=== PATIENT | male | born 1965 | race Caucasian/White ===

== ENCOUNTER 2023-08-23 11:06 | Emergency (ER) | payer BC, SELFPAY ==
[2023-08-23] VITALS (13 sets, daily range): BP systolic 109–132; BP diastolic 76–86; PULSE 67–88; RESP 18; TEMP 36.6; O2SAT 96–98; BMI 29.4
--- NOTE | 2023-08-23 11:59 | ED.GENADULT ---
HPI - General Adult General Chief complaint: Syncope/Fainted Stated complaint: Light headed Time Seen by Provider: 08/23/23 11:26 History of Present Illness HPI narrative: this 58-year-old male comes in reporting symptoms of lightheadedness over the past couple weeks. He states that it seems to be more prominent when getting up from a sitting position. He has not had loss of consciousness. He does not report any nausea, vomiting, shortness of breath, diaphoresis, or chest pain. He states that he is not taking any medications. He is a smoker and has been doing so for a long time. She arrives here with normal vital signs. Related Data Home Medications Medication Instructions Recorded Confirmed No Known Home Medications 08/23/23 08/23/23 Allergies Allergy/AdvReac Type Severity Reaction Status Date / Time No Known Drug Allergies Allergy Verified 08/23/23 11:38 Review of Systems Status of ROS: Reports: 10 or more systems reviewed and unremarkable except as noted in History and below Narrative: Constitutional: No fevers, no weight gain or loss. Eyes: No discharge. No vision changes. HENT: No congestion, no sore throat, no ear pain. Cardiovascular: No chest pain, no palpitations. Respiratory: No shortness of breath, no wheezes, no cough. Gastrointestinal: No abdominal pain, no vomiting, no diarrhea. Genitourinary: No dysuria, no hematuria. Musculoskeletal: Normal range of motion. Skin: No rashes, no pruritis. Neurological: No weakness, sensory change, speech change. He reports lightheadedness symptoms as described above. Endo/Heme/Allergies: No bruising or bleeding. No polydipsia. Pysch: no suicidality, no anxiety, no insomnia. All other systems reviewed and are negative. Exam Narrative: Exam Narrative: Constitutional: Well-developed, well-nourished, no acute distress. HEENT: Normocephalic, atraumatic. Neck: Normal range of motion. Nontender. Supple. Heart: Regular. No murmurs. Normal rate. Intact distal pulses. Lungs: Clear to auscultation. No chest discomfort. No wheezes, rhonchi, or rales. Abdomen: Normal bowel sounds. Nontender. No rebound tenderness. Genitalia: Deferred. Back: No midline tenderness. Normal range of motion. Extremities: Normal range of motion. No injury. No pedal edema. Skin: Intact. No rash. Warm. No erythema or pallor. Neurologic: No altered sensation. No weakness. Alert and oriented. Psychiatric: No suicidality. No anxiety or depression. No insomnia. Nursing notes and vitals signs are reviewed. Const: Vital Signs, click to edit/add: Vital Signs - 24 hr 08/23/23 11:33 08/23/23 12:34 08/23/23 12:35 Temperature 97.9 F Pulse Rate 73 76 Pulse Rate [Right Pulse Oximeter] 88 Respiratory Rate 18 Blood Pressure 125/76 Blood Pressure [Ri ght Upper Arm] 132/86 Pulse Oximetry 97 97 96 Oxygen Delivery Me thod Room Air 08/23/23 12:45 08/23/23 13:00 08/23/23 13:01 Temperature Pulse Rate 77 72 72 Pulse Rate [Right Pulse Oximeter] Respiratory Rate Blood Pressure 122/82 Blood Pressure [Ri ght Upper Arm] Pulse Oximetry 96 97 97 Oxygen Delivery Me thod 08/23/23 13:15 Temperature Pulse Rate 73 Pulse Rate [Right Pulse Oximeter] Respiratory Rate Blood Pressure Blood Pressure [Ri ght Upper Arm] Pulse Oximetry 97 Oxygen Delivery Me thod Course Vital Signs Vital signs: Initial Vital Signs Temperature 97.9 F 08/23/23 11:33 Temperature Source Temporal Artery Scan 08/23/23 11:33 Pulse Rate 88 08/23/23 11:33 Respiratory Rate 18 08/23/23 11:33 Blood Pressure 132/86 08/23/23 11:33 Blood Pressure Mean 101 08/23/23 11:33 Blood Pressure Position Sitting 08/23/23 11:33 Pulse Oximetry 97 08/23/23 11:33 Oxygen Delivery Method Room Air 08/23/23 11:33 Vital Signs Temperature 97.9 F 08/23/23 11:33 Pulse Rate 88 08/23/23 11:33 Respiratory Rate 18 08/23/23 11:33 Blood Pressure 132/86 08/23/23 11:33 Pulse Oximetry 97 08/23/23 11:33 Oxygen Delivery Method Room Air 08/23/23 11:33 Temperature 97.9 F 08/23/23 11:33 Pulse Rate 73 08/23/23 13:15 Respiratory Rate 18 08/23/23 11:33 Blood Pressure 122/82 08/23/23 13:01 Pulse Oximetry 97 08/23/23 13:15 Oxygen Delivery Method Room Air 08/23/23 11:33 Medical Decision Making MDM Narrative Medical decision making narrative: this patient comes in with report of episodes of lightheadedness that seem to be occurring more frequently when arising from a sitting or lying position. He arrives here with normal vital signs. He is not taking any medications. He does not report any other symptoms. He does have sleep apnea and he is a smoker. He states that he has been under more stress recently. EKG shows normal sinus rhythm. Labs are acquired also and these all returned normal including a troponin that returns at 0. I relayed these results to the patient and his . He is okay to be discharged home. I did describe certain contributors toward symptoms like this and advised him to follow-up with his primary physician if symptoms are recurrent. He should return if worsening. Lab Data Labs: Lab Results 08/23/23 08/23/23 Range/Units 11:58 12:24 WBC 5.35 (4.50-11.00) K/uL RBC 5.02 (4.30-5.90) m/uL Hgb 15.3 (13.5-17.5) gm/dL Hct 45.1 (37.0-53.0) % MCV 90 (80-100) fL MCH 31 (26-34) pg MCHC 34 (32-36) gm/dL RDW Coeff of Marlyn 12.4 (11.5-15.5) % Plt Count 226 (140-440) K/uL Neut % (Auto) 44.8 (42.0-72.0) % Lymph % (Auto) 43.6 (20-44) % Mellette % (Auto) 8.2 (0.0-11.0) % Eos % (Auto) 2.4 (0.0-7.0) % Baso % (Auto) 0.4 (0.0-3.0) % Neut # (Auto) 2.40 (1.7-7.0) K/uL Lymph # (Auto) 2.33 (0.90-2.90) K/uL Mellette # (Auto) 0.40 (0.00-0.90) K/UL Eos # (Auto) 0.13 (0.00-0.50) K/uL Baso # (Auto) 0.02 (0.00-0.30) K/uL Abs Immat Gran (auto) 0.03 (0.00-0.30) K/uL Imm/Tot Granulo (auto) 0.6 % Sodium 141 (135-149) mmol/L Potassium 4.5 (3.6-5.1) mmol/L Chloride 106 (96-114) mmol/L Carbon Dioxide 27 (20-32) mmol/L Anion Gap 8 (7-15) mEq/L BUN 12 (7-30) mg/dL Creatinine 0.8 (0.5-1.5) mg/dL Estimated Creat Clear 91.81 Estimated GFR 101 ml/min Glucose 92 (60-115) mg/dL Calcium 9.3 (8.4-10.6) mg/dL POC Troponin I 0.00 L (0.01-0.04) ng/ml ECG Data Attestation: I personally reviewed and interpreted this ECG as follows: Interpretation: Normal sinus rhythm. Rate is 74 beats per minute. There are no ST or T-wave abnormalities. Discharge Plan Discharge Clinical Impression: Episodic lightheadedness Patient Disposition: Home, Self-Care Condition: Stable Additional Instructions: continue current plans. Follow up with primary physician for ongoing management. Smoking cessation is advised. Return if symptoms are recurrent or worsening. Prescriptions: No Action No Known Home Medications Follow Up/Referrals: Filipe Power, SAMANTHA, ATC, CSCS [Structural Technician Certified] - Stand Alone Forms: [employer] Info Instructions
--- OUTSIDE RECORDS SUMMARY | 2023-08-23 12:19 | XMS_ITS | Clinical Summary ---
Author Name Unknown Organization [facility] Address [place], [place] [address] Care Team Providers Care Scientific Informatics Analyst Name Role Phone Pcp, No Primary Care Provider Unavailabl e Allergies No known active allergies Medications Medication Sig Dispensed Refills Start Date End Date Status CPAPIndications:LALIT (obstructive sleep apnea) CPAP machine for home use at pressure 16 cm/H2O, full face mask x1/3month with a full face cushion x1/mo 1 Each 11 07/09/2021 Active atorvastatin (LIPITOR) 20 mg tabletIndications:Hype rlipidemia, unspecified hyperlipidemia type Take 1 Tablet (20 mg) by mouth at bedtime. 90 Tablet 3 09/07/2022 Active Active Problems Problem Noted Date Diagnosed Date Colon polyp 08/15/2021 Overview: Colonoscopy 08/2021 TA, repeat in 7 years LALIT 02/14/2016 HST AHI-24 04/09/2016 Unspecified hearing loss 11/27/2011 Tobacco use disorder 06/15/2011 Encounters Date Type Department Care Team Description 08/23/2023 Nurse Triage [facility] Centralized Nurse Triage Pcp, No Fast Heartbeat from Last 3 Months Immunizations Name Administration Dates Next Due COVID-19 vaccine (Pfizer-Bio NTech 30mcg/0.3mL) 12YO+ BIVALENT PF, MDV 07/18/2022 COVID-19 vaccine (Pfizer-BioNTech 30mcg/0.3mL) P F, MDV 01/02/2021,12/12/2020 Td (Age >=7 Years) 09/03/2003 Tdap 02/11/2016 Family History Medical History Relation Name Comments Other Brother 3 lung ca, mets t o brain, age 59 Heart Disease Brother 4 Pacemaker and defibrillator at 62 Cancer-prostate Father mets to bone and lung Heart Disease Father Heart Disease Mother Stroke Mother Relation Name Status Comments Brother 1 Alive pacemaker defib rillator placed age 62 Brother 2 (Age 59) pulmonary embolism, history of lung cancer with brain metastases Brother 3 Brother 4 Father (Age 72) prostate c ancer with metastases to bone and lungs, history of DC Mother (Age 69) history of strokes Social History Tobacco Use Types Packs/Day Years Used Date Smoking Tobacco: Every Day Cigarettes Smokeless Tobacco: Never Tobacco Cessation:Ready to Q uit: No; Counseling Given: Yes Alcohol Use Standard Drinks/Week Comments Yes 0 (1 standard drink = 0.6 oz pur e alcohol) occassionally PHQ-2 Answer Date Recorded PHQ-2 TOTAL SCORE 0 08/11/2022 Social Connections Answer Date Recorded Frequency of Communication with Friends and Fami ly Not on file 08/06/2021 Financial Resource Strain Answer Date R ecorded Difficulty of Paying Living Expenses Not on file 08/06/2021 Difficulty of Paying Living Expenses Not on file 08/06/2021 Sex and Gender Information Value Date Recorded Sex Assigned at Not on file Gender Identity Not on file Sexual Orientation Not on file Obstetrics History Last Filed Vital Signs Vital Sign Reading Time Taken Comments Blood Pressure 132/84 08/11/2022 3:22 PM CLERICAL ASSISTANT Pulse 88 08/11/2022 3:22 PM CLERICAL ASSISTANT Temperature 37.6 ??C (99.6 ??F) 09/25/2019 3:35 PM CS T Respiratory Rate - - Oxygen Saturation 98% 08/11/2022 3:22 PM CLERICAL ASSISTANT Inhaled Oxygen Concentration - - Weight 86.1 kg (189 lb 12.8 oz) 08/11/2022 3:22 PM CLERICAL ASSISTANT Height 169.8 cm (5' 6.85) 08/11/2022 3:22 PM CS T Body Mass Index 29.86 08/11/2022 3:22 PM CLERICAL ASSISTANT Plan of Treatment Health Maintenance Due Date Last Done Comments Pneumococcal series for age 6-64 (1 of 2 - PCV) 1969 Zoster (shingles) series for age 50+ (1 of 2) 2013 COVID-19 vaccine series ( season) 2023 07/18/2022, 07/23/2021, 01/02/2021, Additional history exists Influenza for age 50-64 04/09/2023 BMI (ht and wt on same day) for age 18+ 08/11/2023 08/11/2022, 02/11/2016, 02/03/2016 Depression screening for age 12+ 08/11/2023 08/11/19 23, 02/03/2016 Tetanus booster 02/10/2026 02/11/2016, 09/03/2003 Lipids for age 45-75 08/11/2027 08/11/2022, 04/28/2021, 02/11/2016, Additional history exists Colonoscopy through age 75 08/14/202808/14, 08/14/2021, 08/14/2021, Additional history exists Tdap Completed 02/11/2016 HIV for age 15-65 Completed 08/11/2022 Hepatitis C screening for ag e 18-79 Completed 08/11/2022 Care Teams Scientific Informatics Analyst Relationship Specialty Start Date End Date Pcp, No . PCP - General 10/06/10
[2023-08-23 12:46] LABS: Basophils Absolute Auto 0.02 K/uL (0.00-0.30); Basophils Percent Auto 0.4 % (0.0-3.0); Eosinophils Absolute Auto 0.13 K/uL (0.00-0.50); Eosinophils Percent Auto 2.4 % (0.0-7.0); Hematocrit 45.1 % (37.0-53.0); Hemoglobin* 15.3 gm/dL (13.5-17.5); Immature Granulocytes Abs Auto 0.03 K/uL (0.00-0.30); Immature Granulocytes Pct Auto 0.6 %; Lymphocytes Absolute Auto 2.33 K/uL (0.90-2.90); Lymphocytes Percent Auto 43.6 % (20-44); Mean Corpuscular HGB Conc 34 gm/dL (32-36); Mean Corpuscular Hemoglobin 31 pg (26-34); Mean Corpuscular Volume 90 fL (80-100); Monocytes Percent Auto 8.2 % (0.0-11.0); Neutrophils Percent Auto 44.8 % (42.0-72.0); Platelet Count* 226 K/uL (140-440); RDW Coefficient of Variation % 12.4 % (11.5-15.5); Red Blood Count 5.02 m/uL (4.30-5.90); White Blood Count* 5.35 K/uL (4.50-11.00)
[2023-08-23 12:53] LABS: Slide Review Reflex No
[2023-08-23 13:30] LABS: Chloride* 106 mmol/L (96-114)
[2023-08-23 13:31] LABS: Potassium* 4.5 mmol/L (3.6-5.1); Sodium* 141 mmol/L (135-149)
[2023-08-23 13:33] LABS: Creatinine* 0.8 mg/dL (0.5-1.5); Est. Creatinine Clearance* 91.81; Estimated Glomerular Filt Rate 101 ml/min
[2023-08-23 13:34] LABS: Anion Gap 8 mEq/L (7-15); Blood Urea Nitrogen* 12 mg/dL (7-30); Calcium* 9.3 mg/dL (8.4-10.6); Carbon Dioxide* 27 mmol/L (20-32); Glucose* 92 mg/dL (60-115)
== END 2023-08-23 14:51 | disposition home or self-care (01) ==
PROVIDERS: Emergency Provider Emergency Medicine Emergency Medical Services; PCP Student in an Organized Health Care Education/Training Program
DX: R42 Dizziness and giddiness (principal)
CPT/HCPCS: 36415; 80048; 84484; 85025; 93005; 99284

== ENCOUNTER 2025-05-22 15:45 | Outpatient (RCR) | payer BC, SELFPAY | END 2025-07-12 16:10 | disposition home or self-care (01) | PROVIDERS: PCP Student in an Organized Health Care Education/Training Program; Visit Provider Student in an Organized Health Care Education/Training Program | DX: M25.562 Pain in left knee (principal); G89.29 Other chronic pain; Z51.89 Encounter for other specified aftercare | CPT/HCPCS: 97110; 97161 ==